=== PATIENT | male | born 1990 | race Caucasian/White ===

== ENCOUNTER 2017-03-18 20:09 | Emergency (ER) | payer BC ==
[2017-03-18 20:16] VITALS: BP 161/58; PULSE 104; TEMP 98.1; BMI 30.8
--- NOTE | 2017-03-18 20:19 | PDOC ---
History of Present Illness - History of Present Illness Initial Comments: 03/18/17 20:32 26 y/o M with no PMH presents to the ED with a right thumb hematoma for two days. Patient states that his thumb got jammed in the car door. He reports associated throbbing sensation. Patient presents today to see if the blood can be drained from underneath his thumbnail. Denies any other complaints. PAST MEDICAL HISTORY: no significant history PAST SURGICAL HISTORY: no significant history FAMILY HISTORY: no pertinent history SOCIAL HISTORY: Pt lives with family and is employed. MEDICATIONS: reviewed ALLERGIES: As per nursing notes Review of Systems: General: No fevers or chills, no weakness, no weight loss HEENT: No change in vision. No sore throat,. No ear pain CardioVascular: No chest pain or shortness of breath Respiratory: No cough, or wheezing. Gastrointestinal: no nausea, vomiting, diarrhea or constipation, No rectal bleeding Genitourinary: No dysuria, hematuria, or frequency Musculoskeletal: (+) right thumb hematoma with throbbing pain. Neurologic: No headache, vertigo, dizziness or loss of consciousness Psychiatric: No depression Skin: No rashes or easy bruising Endocrine: No increased thirst or abnormal weight change Allergic: No skin or latex allergy All other systems reviewed and normal Physical Exam: GENERAL: The patient is awake, alert, and fully oriented, in no acute distress. HEAD: Normal with no signs of trauma. EYES: Pupils equal, round and reactive to light, extraocular movements intact, sclera anicteric, conjunctiva clear. EXTREMITIES: Normal range of motion, no edema. Subungual hematoma approximately 50% of the nail, no bony tenderness NEUROLOGICAL: Normal speech, normal gait. PSYCH: Normal mood, normal affect. SKIN: Warm, Dry, normal turgor, no rashes or lesions noted. <Danni Morelos - Last Filed: 03/18/17 20:32> - General History Source: Patient Exam Limitations: No Limitations - History of Present Illness Initial Comments: X-ray no acute fracture Procedure note trephination of the nail with electrocautery patient tolerated well with moderate amount of blood drained symptoms improved post trephination A portion of this note was documented by scribe services under my direction. I have reviewed the details of the note, within reason, and agree with the documentation. The case summary and management plan written by me. Assessment and plan: This is a 26-year-old male with a subungual hematoma that required trephination with relief of the pressure and drainage of the hemorrhagic fluid. X-ray was negative. Patient discharged will follow-up with his primary care doctor as needed <Juliano Eisenberg I - Last Filed: 03/18/17 20:56> - General Chief Complaint: Injury Stated Complaint: RT THUMB INJURY Time Seen by Provider: 03/18/17 20:13 Past History <Danni Morelos - Last Filed: 03/18/17 20:32> - Past Medical History COPD: No Other medical history: DENIES - Suicide/Smoking/Psychosocial Hx Smoking History: Never smoked Information on smoking cessation initiated: No Hx Alcohol Use: No Drug/Substance Use Hx: No <Juliano Eisenberg I - Last Filed: 03/18/17 20:56> - Past Medical History Allergies/Adverse Reactions: Allergies Allergy/AdvReac Type Severity Reaction Status Date / Time No Known Allergies Allergy Verified 03/18/17 20:10 Home Medications: Ambulatory Orders Ibuprofen 600 mg PO ASDIR PRN 03/18/17 *Physical Exam - Vital Signs Last Vital Signs Temp Pulse Resp BP Pulse Ox 98.1 F 104 H 20 161/58 100 03/18/17 20:10 03/18/17 20:10 03/18/17 20:10 03/18/17 20:10 03/18/17 20:10 <Danni Morelos - Last Filed: 03/18/17 20:32> - Vital Signs Last Vital Signs Temp Pulse Resp BP Pulse Ox 98.1 F 104 H 20 161/58 100 03/18/17 20:10 03/18/17 20:10 03/18/17 20:10 03/18/17 20:10 03/18/17 20:10 <Juliano Eisenberg I - Last Filed: 03/18/17 20:56> *DC/Admit/Observation/Transfer - Attestations Scribe Attestion: 03/18/17 20:32 Documentation prepared by Danni Morelos, acting as certified medical technician for Juliano Eisenberg MD. <Danni Morelos - Last Filed: 03/18/17 20:32> - Discharge Dispostion Admit: No <ScarmumtazJuliano Orellana I - Last Filed: 03/18/17 20:56> Diagnosis at time of Disposition: Hematoma, subungual, thumb, right Qualifiers: Encounter type: initial encounter Qualified Code(s): S60.111A - Contusion of right thumb with damage to nail, initial encounter - Discharge Dispostion Disposition: HOME Condition at time of disposition: Stable - Patient Instructions Additional Instructions: Tylenol as needed for pain. Put a Band-Aid over the nail tonight to absorb any additional drainage. Return to the emergency department immediately with ANY new, persistent or worsening symptoms. Continue any medications as previously prescribed by your physician. You should follow up with your primary doctor as soon as possible regarding today's emergency department visit. . Please make sure your doctor reviews the results of your emergency evaluation. Thank you for coming to the Emergency Department today for your care. It was a pleasure to see you today. Please note that your evaluation is INCOMPLETE until you follow-up with your doctor.
== END 2017-03-18 21:02 | disposition home or self-care (01) ==
LOC: FER 20:09
PROC: 0H9QXZZ Drainage of Finger Nail, External Approach (ICD-10-PCS; principal; 2017-03-18)
DX: S60.111A Contusion of right thumb with damage to nail, initial encounter (principal); W22.8XXA Striking against or struck by other objects, initial encounter; Y93.9 Activity, unspecified; Y92.9 Unspecified place or not applicable
CPT/HCPCS: 73140-TC-RT-FY; 99282-25

== ENCOUNTER 2024-10-10 10:30 | Emergency (ER) | payer OTHER ==
[2024-10-10 10:41] VITALS: BMI 31.2
[2024-10-10 11:56] LABS: ABSOLUTE IMMATURE GRANULOCYTES 0.00 x10^3/uL (0.0-0.031); BASOPHILS # 0.01 x10^3/uL (0.01-0.08); EOSINOPHIL % 0.7 % (0.8-7.0); EOSINOPHILS # 0.04 x10^3/uL (0.04-0.54); MCHC 33.2 g/dl (32.3-36.5); MEAN CELL VOLUME 84.8 fl (79.0-92.2); MEAN PLT VOLUME 9.4 fl (9.4-12.4); MONOCYTE # 0.27 x10^3/uL (0.30-0.82); MONOCYTE % 4.8 % (5.3-12.2); RDW 13.0 % (12.0-15.6)
[2024-10-10 12:07] LABS: ALK PHOS 44 U/L (45-117); CO2 29 mmol/L (21-32); CREATININE 1.1 mg/dl (0.6-1.3); GLUCOSE,RANDOM 106 mg/dl (74-106); SGOT/AST 21 U/L (15-37); SGPT/ALT 38 U/L (7-52); TOT PROT 7.5 g/dl (6.4-8.2)
[2024-10-10 13:43] VITALS: BP 146/95; PULSE 95; RESP 15; TEMP 99
[2024-10-10 14:00] LABS: HCV DIAGNOSTIC IN-HOUSE W/RFLX NON-REACTIVE (NONREACTIVE); HIV INTERPRETATION NEGATIVE (NEGATIVE)
== END 2024-10-10 13:48 | disposition home or self-care (01) ==
LOC: FER 10:30 → SUPCPDRO 10:30 → FER 13:48
DX: R10.32 Left lower quadrant pain (principal); R11.0 Nausea; R68.83 Chills (without fever)
CPT/HCPCS: 36415; 74177-TC; 80053; 81003; 85025; 86803; 87086; 87389; Q9967